=== PATIENT | female | born 1955 | race African-American/Black ===

== ENCOUNTER 2022-10-16 00:42 | Inpatient (IN) | payer MEDICARE, MEDICAID ==
[2022-10-16 04:08] LABS: Actual Bicarbonate (HCO3a) 19.9 mEq/L (22-28); Base Excess (BEa) -5.5 mEq/L (-2.0 to +3.0); CO2 Tension 38.7 mmHg (35.0-45.0); Calcium, Ionized (arterial) 1.15 mmol/L (1.12-1.30); Carboxyhemoglobin (COHb) 0.8 gm% (0.0-3.0); Hemoglobin (Hb) 14.1 g/dL (12.0-16.0); Potassium - ABG Lab 3.15 mmol/L (3.70-5.30); pH, Arterial 7.33 (7.35-7.45)
[2022-10-16 04:11] LABS: Puncture Site R RAD
[2022-10-16 04:12] LABS: ALV-art Gradient 77.825 mmHg (0-20)
[2022-10-16] MEDS ORDERED: Heparin 10,000 UNITS/ 10 ML VIAL SLOW IVP SCH (04:15)
[2022-10-16] MEDS ORDERED: HumaLOG 300 UNITS/3 ML VIAL SC PRN (04:19)
[2022-10-16] MEDS ORDERED: Dextrose 50% Abboject 50 ML SYRINGE SLOW IVP PRN (04:19)
[2022-10-16] MEDS ORDERED: Dextrose 5% in Water 1,000 ML IV PRN (04:19)
[2022-10-16] MEDS ORDERED: Electrolyte Replacement Protocol 1 EACH FS PRN (04:20)
[2022-10-16] MEDS ORDERED: Lactated Ringer's 1,000 ML IV SCH (04:30)
[2022-10-16] MEDS ORDERED: hydrALAZINE 20 MG/ML VIAL SLOW IVP PRN ×2 (04:34→09:07)
[2022-10-16 05:04] LABS: Hemoglobin 13.8 g/dL (12.0-16.0); Platelet Count 260 10x3/uL (130-400)
[2022-10-16 05:24] LABS: Lactic Acid 7.4 mmol/L (0.5-2.2)
[2022-10-16 05:31] LABS: Phosphorus 4.3 mg/dL (2.3-4.7)
[2022-10-16 05:32] LABS: Troponin I 8.326 ng/mL (< 0.028)
[2022-10-16 05:34] LABS: ALT (SGPT) 275 U/L (8-55); AST (SGOT) 334 U/L (5-34); Albumin 3.9 g/dL (3.4-4.8); Alkaline Phosphatase 110 U/L (40-110); Anion Gap 20 mmol/L (10-20); BUN (Urea Nitrogen) 18 mg/dL (9.8-20.1); Bilirubin, Total 0.7 mg/dL (0.2-1.2); Calc. Creatinine Clearance 35 mL/min (70-130); Calcium 8.8 mg/dL (7.8-10.44); Carbon Dioxide 15 mmol/L (23-31); Chloride 106 mmol/L (98-107); Estimated GFR 37; Globulin 3.6 g/dL (2.4-3.5); Glucose 343 mg/dL (80-115); Magnesium 2.1 mg/dL (1.6-2.6); Potassium 3.3 mmol/L (3.5-5.1); Protein, Total 7.5 g/dL (5.8-8.1); Sodium 138 mmol/L (136-145)
[2022-10-16] MEDS: Labetalol HCl 100 MG/20 ML VIAL SLOW IVP PRN ×6 (05:34→22:04)
[2022-10-16 05:39] LABS: D-Dimer Test Greater than 20.00 *mcg/mL (0.27-0.43)
[2022-10-16] MEDS: Heparin 25,000 units/D5W 500 ML IVPB SCH (07:17)
[2022-10-16] MEDS ORDERED: Potassium Chloride 20 MEQ TAB PO SCH (08:00)
[2022-10-16] MEDS: Amlodipine 5 MG TAB PO SCH (09:10)
[2022-10-16] MEDS: Pantoprazole 40 MG VIAL IVP SCH (09:10)
[2022-10-16] MEDS: Aspirin Chewable 81 MG TAB PER TUBE SCH (09:10)
[2022-10-16 10:50] LABS: Band 22 % (5-11); Hemoglobin 13.9 g/dL (12.0-16.0); Hypochromia SLIGHT = 6-15 cells (100X) (0-5/hpf); Lymphocytes 5 % (21-51); MDiff Complete? YES; Mean Corpuscular HGB CONC 30.8 g/dL (32.0-36.0); Mean Corpuscular Hemoglobin 28.8 pg (27.0-31.0); Mean Corpuscular Volume 93.4 fl (78.0-98.0); Mean Platelet Volume 7.6 fL (7.4-10.4); Monocytes 4 % (0-10); Neutrophil 65 % (42-75); Platelet Count 288 10x3/uL (130-400); Platelet Morphology Comment Appears Adequate; Polychromasia SLIGHT = 2-3 cells (100X) (0-2/hpf); RBC Distribution Width 13.1 % (11.5-14.5); Reactive Lymphocytes 4 % (0-10); Red Blood Cell (RBC) Count 4.82 mill/uL (4.20-5.40)
[2022-10-16 11:09] LABS: PTT Greater than 250.0 sec (22.9-36.1)
[2022-10-16] MEDS: Ketorolac Tromethamine 30 MG/ML VIAL IVP PRN ×2 (11:31→22:03)
[2022-10-16] MEDS: Atorvastatin Calcium 40 MG TAB PER TUBE SCH (20:13)
[2022-10-16 20:28] LABS: PTT 122.7 sec (22.9-36.1)
[2022-10-16] MEDS ORDERED: Fentanyl CADD 0 ML ONE (23:40)
[2022-10-17 04:37] LABS: #Basophils 0.1 thou/uL (0.0-0.2); #Eosinphils 0.1 thou/uL (0.0-0.7); #Lymphocytes 2.8 thou/uL (1.20-3.40); #Monocytes 1.5 thou/uL (0.11-0.59); #Neutrophils 8.9 thou/uL (1.40-6.50); %Basophils 0.8 % (0.0-1.0); %Eosinophils 0.4 % (0.0-10.0); %Monocytes 11.5 % (0.0-10.0); %Neutrophils 66.4 % (42.0-75.0); Hemoglobin 14.7 g/dL (12.0-16.0); Mean Corpuscular HGB CONC 32.3 g/dL (32.0-36.0); Mean Corpuscular Volume 93.1 fl (78.0-98.0); Mean Platelet Volume 8.3 fL (7.4-10.4); Platelet Count 215 10x3/uL (130-400); RBC Distribution Width 13.4 % (11.5-14.5); Red Blood Cell (RBC) Count 4.89 mill/uL (4.20-5.40); White Blood Cell (WBC) Count 13.4 10x3/uL (4.8-10.8)
[2022-10-17 05:02] LABS: ALT (SGPT) 159 U/L (8-55); AST (SGOT) 157 U/L (5-34); Albumin 3.3 g/dL (3.4-4.8); Alkaline Phosphatase 70 U/L (40-110); Anion Gap 18 mmol/L (10-20); BUN (Urea Nitrogen) 30 mg/dL (9.8-20.1); Bilirubin, Total 0.9 mg/dL (0.2-1.2); Calc. Creatinine Clearance 34 mL/min (70-130); Calcium 8.6 mg/dL (7.8-10.44); Carbon Dioxide 22 mmol/L (23-31); Cardiac Risk 2.5 (Less than 4.5); Chloride 108 mmol/L (98-107); Cholesterol 157 mg/dl (< 200 Desired); Estimated GFR 37; Globulin 3.3 g/dL (2.4-3.5); Glucose 132 mg/dL (80-115); HDL Cholesterol 62 mg/dL (>60 Neg Risk); LDL Cholesterol, Calculated 73 mg/dL; Magnesium 1.9 mg/dL (1.6-2.6); Potassium 3.6 mmol/L (3.5-5.1); Protein, Total 6.6 g/dL (5.8-8.1); Sodium 144 mmol/L (136-145); Triglycerides 112 mg/dL (Less than 150)
[2022-10-17 05:10] LABS: Lactic Acid 4.4 mmol/L (0.5-2.2)
[2022-10-17 07:18] LABS: Actual Bicarbonate (HCO3a) 25.3 mEq/L (22-28); Base Excess (BEa) 4.3 mEq/L (-2.0 to +3.0); Calcium, Ionized (arterial) 1.06 mmol/L (1.12-1.30); Carboxyhemoglobin (COHb) 0.6 gm% (0.0-3.0); Hemoglobin (Hb) 14.3 g/dL (12.0-16.0); O2 Tension (PaO2), arterial 71.4 mmHg (> 80.0); Potassium - ABG Lab 3.28 mmol/L (3.70-5.30); pH, Arterial 7.57 (7.35-7.45)
[2022-10-17 07:34] LABS: Puncture Site LRA
[2022-10-17] MEDS ORDERED: Magnesium 2 GM/50 ML(in water) 2 GM in Premix Bag 1 BAG IVPB SCH (08:00)
[2022-10-17] MEDS: Aspirin Chewable 81 MG TAB PER TUBE SCH (08:18)
[2022-10-17] MEDS: Pantoprazole 40 MG VIAL IVP SCH (08:18)
[2022-10-17] MEDS: Amlodipine 5 MG TAB PO SCH (08:18)
[2022-10-17] MEDS: Scopolamine 1.5 mg/72 hour Patch TD SCH (08:18)
[2022-10-17] MEDS ORDERED: Iopamidol-370 76% 500 ML 1 ML ONE (11:30)
[2022-10-17] MEDS: Heparin 25,000 units/D5W 500 ML IVPB SCH (16:37)
[2022-10-17] MEDS: Atorvastatin Calcium 40 MG TAB PER TUBE SCH (20:06)
[2022-10-17] MEDS: Ketorolac Tromethamine 30 MG/ML VIAL IVP PRN (22:17)
[2022-10-18] MEDS: HumaLOG 300 UNITS/3 ML VIAL SC PRN ×2 (05:00→20:45)
[2022-10-18 05:27] LABS: Hemoglobin 8.7 g/dL (12.0-16.0); Mean Corpuscular HGB CONC 31.8 g/dL (32.0-36.0); Mean Corpuscular Hemoglobin 29.5 pg (27.0-31.0); Mean Corpuscular Volume 92.8 fl (78.0-98.0); Mean Platelet Volume 8.9 fL (7.4-10.4); Platelet Count 286 10x3/uL (130-400); RBC Distribution Width 13.2 % (11.5-14.5); Red Blood Cell (RBC) Count 2.95 mill/uL (4.20-5.40); White Blood Cell (WBC) Count 22.3 10x3/uL (4.8-10.8)
[2022-10-18 05:31] LABS: Band 7 % (5-11); Lymphocytes 17 % (21-51); MDiff Complete? YES; Monocytes 6 % (0-10); Neutrophil 70 % (42-75); PTT Greater than 250.0 sec (22.9-36.1); Platelet Morphology Comment Appears Adequate; Polychromasia SLIGHT = 2-3 cells (100X) (0-2/hpf)
[2022-10-18 05:46] LABS: ALT (SGPT) 114 U/L (8-55); AST (SGOT) 155 U/L (5-34); Albumin 3.1 g/dL (3.4-4.8); Alkaline Phosphatase 76 U/L (40-110); Anion Gap 21 mmol/L (10-20); BUN (Urea Nitrogen) 50 mg/dL (9.8-20.1); Calc. Creatinine Clearance 18 mL/min (70-130); Calcium 8.2 mg/dL (7.8-10.44); Carbon Dioxide 26 mmol/L (23-31); Chloride 102 mmol/L (98-107); Estimated GFR 19; Globulin 3.6 g/dL (2.4-3.5); Glucose 231 mg/dL (80-115); Phosphorus 3.9 mg/dL (2.3-4.7); Potassium 3.6 mmol/L (3.5-5.1); Protein, Total 6.7 g/dL (5.8-8.1); Sodium 145 mmol/L (136-145)
[2022-10-18 07:45] LABS: Actual Bicarbonate (HCO3a) 25.9 mEq/L (22-28); CO2 Tension 30.4 mmHg (35.0-45.0); Carboxyhemoglobin (COHb) 0.6 gm% (0.0-3.0); Hemoglobin (Hb) 12.3 g/dL (12.0-16.0); O2 Tension (PaO2), arterial 125.6 mmHg (> 80.0); Potassium - ABG Lab 3.74 mmol/L (3.70-5.30); pH, Arterial 7.55 (7.35-7.45)
[2022-10-18 07:49] LABS: Puncture Site LRA
[2022-10-18] MEDS: Amlodipine 5 MG TAB PO SCH (08:58)
[2022-10-18] MEDS: Aspirin Chewable 81 MG TAB PER TUBE SCH (08:59)
[2022-10-18] MEDS: Pantoprazole 40 MG VIAL IVP SCH (08:59)
[2022-10-18 10:45] LABS: Hemoglobin 13.4 g/dL (12.0-16.0); Mean Corpuscular HGB CONC 30.6 g/dL (32.0-36.0); Mean Corpuscular Hemoglobin 28.5 pg (27.0-31.0); Mean Corpuscular Volume 93.2 fl (78.0-98.0); Mean Platelet Volume 9.2 fL (7.4-10.4); Platelet Count 254 10x3/uL (130-400); RBC Distribution Width 13.3 % (11.5-14.5); White Blood Cell (WBC) Count 20.9 10x3/uL (4.8-10.8)
[2022-10-18] MEDS ORDERED: Lactated Ringer's 500 ML IV SCH (11:30)
[2022-10-18] MEDS ORDERED: Lactated Ringer's 1,000 ML IV SCH (11:30)
[2022-10-18 12:52] LABS: Band 12 % (5-11); Lymphocytes 22 % (21-51); MDiff Complete? YES; Monocytes 12 % (0-10); Neutrophil 54 % (42-75); Platelet Morphology Comment Appears Adequate; Polychromasia SLIGHT = 2-3 cells (100X) (0-2/hpf)
[2022-10-18] MEDS: Lactated Ringer's 1,000 ML IV SCH ×2 (12:59→20:19)
[2022-10-18] MEDS: Atorvastatin Calcium 40 MG TAB PER TUBE SCH (20:17)
[2022-10-18] MEDS: Apixaban 5 MG TAB PO SCH (20:17)
[2022-10-19 05:04] VITALS: BMI 21.7
[2022-10-19] MEDS: Amlodipine 5 MG TAB PO SCH (09:30)
[2022-10-19] MEDS: Aspirin Chewable 81 MG TAB PER TUBE SCH (09:30)
[2022-10-19] MEDS: Lactated Ringer's 1,000 ML IV SCH (09:30)
[2022-10-19] MEDS: Apixaban 5 MG TAB PO SCH ×2 (09:31→19:53)
[2022-10-19] MEDS: Pantoprazole 40 MG VIAL IVP SCH (09:31)
[2022-10-19] MEDS: Atorvastatin Calcium 40 MG TAB PER TUBE SCH (19:53)
[2022-10-20 04:29] LABS: Hemoglobin 8.8 g/dL (12.0-16.0); Mean Corpuscular HGB CONC 30.5 g/dL (32.0-36.0); Mean Corpuscular Hemoglobin 28.8 pg (27.0-31.0); Mean Corpuscular Volume 94.4 fl (78.0-98.0); Mean Platelet Volume 9.8 fL (7.4-10.4); Platelet Count 164 10x3/uL (130-400); RBC Distribution Width 13.2 % (11.5-14.5); Red Blood Cell (RBC) Count 3.05 mill/uL (4.20-5.40); White Blood Cell (WBC) Count 10.7 10x3/uL (4.8-10.8)
[2022-10-20 04:49] LABS: Anion Gap 17 mmol/L (10-20); BUN (Urea Nitrogen) 73 mg/dL (9.8-20.1); Calc. Creatinine Clearance 20 mL/min (70-130); Calcium 8.2 mg/dL (7.8-10.44); Carbon Dioxide 28 mmol/L (23-31); Chloride 113 mmol/L (98-107); Estimated GFR 21; Glucose 169 mg/dL (80-115); Potassium 3.8 mmol/L (3.5-5.1)
[2022-10-20 05:12] LABS: Sodium 154 mmol/L (136-145)
[2022-10-20 05:17] LABS: Band 20 % (5-11); Lymphocytes 6 % (21-51); MDiff Complete? YES; Monocytes 6 % (0-10); Neutrophil 68 % (42-75)
[2022-10-20 07:15] LABS: Hemoglobin 8.7 g/dL (12.0-16.0); Mean Corpuscular HGB CONC 30.9 g/dL (32.0-36.0); Mean Corpuscular Hemoglobin 29.2 pg (27.0-31.0); Mean Corpuscular Volume 94.7 fl (78.0-98.0); Mean Platelet Volume 9.7 fL (7.4-10.4); Platelet Count 169 10x3/uL (130-400); RBC Distribution Width 13.3 % (11.5-14.5); Red Blood Cell (RBC) Count 2.96 mill/uL (4.20-5.40); White Blood Cell (WBC) Count 9.6 10x3/uL (4.8-10.8)
[2022-10-20 07:29] LABS: Anion Gap 16 mmol/L (10-20); BUN (Urea Nitrogen) 71 mg/dL (9.8-20.1); Calc. Creatinine Clearance 22 mL/min (70-130); Calcium 8.2 mg/dL (7.8-10.44); Carbon Dioxide 29 mmol/L (23-31); Chloride 113 mmol/L (98-107); Estimated GFR 22; Glucose 171 mg/dL (80-115); Potassium 3.8 mmol/L (3.5-5.1)
[2022-10-20 07:34] LABS: Actual Bicarbonate (HCO3a) 32.5 mEq/L (22-28); Base Excess (BEa) 7.9 mEq/L (-2.0 to +3.0); CO2 Tension 44.4 mmHg (35.0-45.0); Calcium, Ionized (arterial) 1.09 mmol/L (1.12-1.30); Carboxyhemoglobin (COHb) 0.9 gm% (0.0-3.0); Hemoglobin (Hb) 15.3 g/dL (12.0-16.0); O2 Tension (PaO2), arterial 70.9 mmHg (> 80.0); Potassium - ABG Lab 3.71 mmol/L (3.70-5.30); pH, Arterial 7.48 (7.35-7.45)
[2022-10-20] MEDS: Dextrose 5% in Water 1,000 ML IV SCH ×2 (07:39→13:35)
[2022-10-20] MEDS: Lactated Ringer's 1,000 ML IV SCH ×2 (07:42→18:15)
[2022-10-20 07:43] LABS: Puncture Site RRA
[2022-10-20 07:45] LABS: Sodium 154 mmol/L (136-145)
[2022-10-20] MEDS: Amlodipine 5 MG TAB PO SCH (07:52)
[2022-10-20] MEDS: Pantoprazole 40 MG VIAL IVP SCH (07:52)
[2022-10-20] MEDS: Aspirin Chewable 81 MG TAB PER TUBE SCH (07:53)
[2022-10-20] MEDS: Apixaban 5 MG TAB PO SCH ×2 (07:53→19:30)
[2022-10-20] MEDS: Scopolamine 1.5 mg/72 hour Patch TD SCH (07:53)
[2022-10-20 08:09] LABS: Band 19 % (5-11); Eosinophils 1 % (0-10); Hypochromia SLIGHT = 6-15 cells (100X) (0-5/hpf); Lymphocytes 9 % (21-51); MDiff Complete? YES; Metamyelocyte 1 % (0-0); Monocytes 1 % (0-10); Neutrophil 69 % (42-75); Platelet Morphology Comment Appears Adequate; Polychromasia SLIGHT = 2-3 cells (100X) (0-2/hpf)
[2022-10-20] MEDS ORDERED: Piperacillin/Tazobactam 3.375 GM in Sodium Chloride 0.9% 100 ML IVPB SCH (09:15)
[2022-10-20] MEDS ORDERED: NOREPINEPHRINE 8 MG/250 ML-D5W 250 ML IVPB SCH (13:00)
[2022-10-20] MEDS: Piperacillin/Tazobactam 3.375 GM in Sodium Chloride 0.9% 100 ML IVPB SCH (13:29)
[2022-10-20] MEDS ORDERED: Piperacillin/Tazobactam 2.25 GM in Sodium Chloride 0.9% 100 ML IVPB SCH (14:00)
[2022-10-20] MEDS ORDERED: Morphine 4 MG/ML VIAL SLOW IVP PRN (18:13)
[2022-10-20] MEDS: Atorvastatin Calcium 40 MG TAB PER TUBE SCH (19:30)
[2022-10-20] MEDS ORDERED: Acetaminophen 325 MG TAB PO PRN (20:05)
[2022-10-21] MEDS ORDERED: Vancomycin Dose by Levels Sliding Scale (Wt <71) FS SCH (00:15)
[2022-10-21] MEDS ORDERED: VANCOMYCIN 1.25 GM/250 ML BAG 1.25 GM in Premix Bag 1 BAG IVPB SCH (00:15)
[2022-10-21] MEDS: Piperacillin/Tazobactam 3.375 GM in Sodium Chloride 0.9% 100 ML IVPB SCH (03:53)
[2022-10-21] MEDS: HumaLOG 300 UNITS/3 ML VIAL SC PRN (04:00)
[2022-10-21 04:10] LABS: Band 42 % (5-11); Hemoglobin 7.1 g/dL (12.0-16.0); Lymphocytes 16 % (21-51); MDiff Complete? YES; Mean Corpuscular HGB CONC 29.6 g/dL (32.0-36.0); Mean Corpuscular Hemoglobin 28.9 pg (27.0-31.0); Mean Corpuscular Volume 97.8 fl (78.0-98.0); Mean Platelet Volume 10.2 fL (7.4-10.4); Metamyelocyte 8 % (0-0); Monocytes 3 % (0-10); Myelocyte 3 % (0-0); Neutrophil 28 % (42-75); Platelet Count 182 10x3/uL (130-400); RBC Distribution Width 13.4 % (11.5-14.5); RBC Morphology Normal; Red Blood Cell (RBC) Count 2.47 mill/uL (4.20-5.40); White Blood Cell (WBC) Count 13.3 10x3/uL (4.8-10.8)
[2022-10-21 04:14] LABS: Anion Gap 16 mmol/L (10-20); BUN (Urea Nitrogen) 94 mg/dL (9.8-20.1); Calc. Creatinine Clearance 12 mL/min (70-130); Carbon Dioxide 30 mmol/L (23-31); Chloride 109 mmol/L (98-107); Estimated GFR 11; Glucose 188 mg/dL (80-115); Potassium 4.8 mmol/L (3.5-5.1); Sodium 150 mmol/L (136-145)
[2022-10-21] MEDS: Lactated Ringer's 1,000 ML IV SCH ×2 (05:30→15:21)
[2022-10-21 06:59] LABS: Actual Bicarbonate (HCO3a) 28.3 mEq/L (22-28); Base Excess (BEa) 2.2 mEq/L (-2.0 to +3.0); CO2 Tension 53.1 mmHg (35.0-45.0); Calcium, Ionized (arterial) 1.04 mmol/L (1.12-1.30); Carboxyhemoglobin (COHb) 0.6 gm% (0.0-3.0); Hemoglobin (Hb) 7.7 g/dL (12.0-16.0); O2 Tension (PaO2), arterial 68.8 mmHg (> 80.0); Potassium - ABG Lab 4.92 mmol/L (3.70-5.30); pH, Arterial 7.34 (7.35-7.45)
[2022-10-21 07:10] LABS: ALV-art Gradient 399.575 mmHg (0-20); Puncture Site RRA
[2022-10-21] MEDS: Dextrose 5% in Water 1,000 ML IV SCH ×2 (08:22→09:02)
[2022-10-21] MEDS: Amlodipine 5 MG TAB PO SCH (08:37)
[2022-10-21] MEDS: Apixaban 5 MG TAB PO SCH ×2 (08:42→19:22)
[2022-10-21] MEDS: Pantoprazole 40 MG VIAL IVP SCH (08:42)
[2022-10-21] MEDS: Aspirin Chewable 81 MG TAB PER TUBE SCH (08:42)
[2022-10-21] MEDS ORDERED: Cefepime 1 GM in Sodium Chloride 0.9% 100 ML IVPB SCH (09:00)
[2022-10-21] MEDS: Atorvastatin Calcium 40 MG TAB PER TUBE SCH (19:23)
[2022-10-22] MEDS: Lactated Ringer's 1,000 ML IV SCH (00:59)
[2022-10-22 01:35] LABS: Vancomycin, Random 21.1 ug/mL (See Comment)
[2022-10-22 04:33] LABS: Hemoglobin 5.6 g/dL (12.0-16.0); Mean Corpuscular HGB CONC 29.4 g/dL (32.0-36.0); Mean Corpuscular Hemoglobin 28.5 pg (27.0-31.0); Mean Platelet Volume 10.7 fL (7.4-10.4); Platelet Count 170 10x3/uL (130-400); RBC Distribution Width 13.5 % (11.5-14.5); Red Blood Cell (RBC) Count 1.95 mill/uL (4.20-5.40); White Blood Cell (WBC) Count 16.5 10x3/uL (4.8-10.8)
[2022-10-22 04:43] LABS: Anion Gap 16 mmol/L (10-20); BUN (Urea Nitrogen) 119 mg/dL (9.8-20.1); Calc. Creatinine Clearance 10 mL/min (70-130); Calcium 7.7 mg/dL (7.8-10.44); Carbon Dioxide 26 mmol/L (23-31); Chloride 106 mmol/L (98-107); Estimated GFR 9; Glucose 140 mg/dL (80-115); Potassium 5.1 mmol/L (3.5-5.1); Sodium 143 mmol/L (136-145)
[2022-10-22 05:00] LABS: Band 30 % (5-11); Eosinophils 3 % (0-10); Lymphocytes 17 % (21-51); MDiff Complete? YES; Monocytes 1 % (0-10); Neutrophil 49 % (42-75)
[2022-10-22 05:35] LABS: Hemoglobin 5.5 g/dL (12.0-16.0); Platelet Count 158 10x3/uL (130-400)
[2022-10-22 05:40] LABS: INR-International Normal Ratio 4.4; PTT 49.1 sec (22.9-36.1); Prothrombin Time 43.9 sec (12.0-14.7)
[2022-10-22 06:52] LABS: Actual Bicarbonate (HCO3a) 25.7 mEq/L (22-28); Base Excess (BEa) 0.1 mEq/L (-2.0 to +3.0); Calcium, Ionized (arterial) 1.04 mmol/L (1.12-1.30); Carboxyhemoglobin (COHb) 0.7 gm% (0.0-3.0); O2 Tension (PaO2), arterial 77.3 mmHg (> 80.0); Potassium - ABG Lab 4.74 mmol/L (3.70-5.30); pH, Arterial 7.36 (7.35-7.45)
[2022-10-22 07:17] LABS: Hemoglobin (Hb) 5.8 g/dL (12.0-16.0); Puncture Site RRA
[2022-10-22] MEDS: Pantoprazole 40 MG VIAL IVP SCH (08:01)
[2022-10-22] MEDS: Amlodipine 5 MG TAB PO SCH (08:01)
[2022-10-22] MEDS: Aspirin Chewable 81 MG TAB PER TUBE SCH (08:02)
[2022-10-22] MEDS ORDERED: Cefepime 1 GM in Sodium Chloride 0.9% 100 ML IVPB SCH (09:00)
[2022-10-22] MEDS: Atorvastatin Calcium 40 MG TAB PER TUBE SCH (20:07)
[2022-10-23 06:55] LABS: Anion Gap 14 mmol/L (10-20); Calc. Creatinine Clearance 10 mL/min (70-130); Calcium 8.2 mg/dL (7.8-10.44); Carbon Dioxide 25 mmol/L (23-31); Chloride 108 mmol/L (98-107); Estimated GFR 8; Glucose 135 mg/dL (80-115); Potassium 4.8 mmol/L (3.5-5.1); Sodium 142 mmol/L (136-145); Vancomycin, Random 17.4 ug/mL (See Comment)
[2022-10-23 07:07] LABS: BUN (Urea Nitrogen) 126 mg/dL (9.8-20.1)
[2022-10-23 07:13] LABS: Hemoglobin 8.3 g/dL (12.0-16.0); Mean Corpuscular HGB CONC 30.4 g/dL (32.0-36.0); Mean Corpuscular Hemoglobin 29.1 pg (27.0-31.0); Mean Corpuscular Volume 95.7 fl (78.0-98.0); Mean Platelet Volume 10.5 fL (7.4-10.4); Platelet Count 199 10x3/uL (130-400); RBC Distribution Width 13.3 % (11.5-14.5); Red Blood Cell (RBC) Count 2.86 mill/uL (4.20-5.40); White Blood Cell (WBC) Count 19.2 10x3/uL (4.8-10.8)
[2022-10-23] MEDS ORDERED: Vancomycin HCl 250 MG in Sodium Chloride 0.9% 100 ML IVPB SCH (08:00)
[2022-10-23] MEDS: Scopolamine 1.5 mg/72 hour Patch TD SCH (08:24)
[2022-10-23 08:45] LABS: Band 26 % (5-11); Eosinophils 4 % (0-10); Lymphocytes 5 % (21-51); MDiff Complete? YES; Metamyelocyte 3 % (0-0); Monocytes 4 % (0-10); Neutrophil 58 % (42-75); Nucleated RBC 1 % (0); Platelet Morphology Comment Appears Adequate; Polychromasia SLIGHT = 2-3 cells (100X) (0-2/hpf)
[2022-10-23] MEDS ORDERED: Cefepime 0.5 GM, Admixture Fee 1 EACH in Sodium Chloride 0.9% 100 ML IVPB SCH (09:00)
[2022-10-23] MEDS: Amlodipine 5 MG TAB PO SCH (09:20)
[2022-10-23] MEDS: Pantoprazole 40 MG VIAL IVP SCH (09:20)
[2022-10-23 14:33] VITALS: BP 116/60
[2022-10-23] MEDS ORDERED: Lorazepam 2 MG/ML VIAL SLOW IVP PRN (16:35)
[2022-10-23 16:41] VITALS: TEMP 97
[2022-10-23] MEDS ORDERED: Morphine 4 MG/ML VIAL SLOW IVP SCH (16:45)
[2022-10-26] MEDS ORDERED: Apixaban 5 MG TAB PO SCH (09:00)
== END 2022-10-23 21:27 | disposition expired | DRG 207 ==
LOC: CCU 00:42
PROVIDERS: ADMIT Student in an Organized Health Care Education/Training Program; ATTEND Family Medicine
PROC: 5A1955Z Respiratory Ventilation, Greater than 96 Consecutive Hours (ICD-10-PCS; principal; 2022-10-16)
PROC: 0W9930Z Drainage of Right Pleural Cavity with Drainage Device, Percutaneous Approach (ICD-10-PCS; 2022-10-21)
PROC: 30233N1 Transfusion of Nonautologous Red Blood Cells into Peripheral Vein, Percutaneous Approach (ICD-10-PCS; 2022-10-22)
DX: I26.02 Saddle embolus of pulmonary artery with acute cor pulmonale (principal); J96.01 Acute respiratory failure with hypoxia; J96.02 Acute respiratory failure with hypercapnia; U07.1 COVID-19; K72.00 Acute and subacute hepatic failure without coma; I21.A1 Myocardial infarction type 2; J93.0 Spontaneous tension pneumothorax; R40.20 Unspecified coma; G93.1 Anoxic brain damage, not elsewhere classified; N17.9 Acute kidney failure, unspecified; E87.0 Hyperosmolality and hypernatremia; D62 Acute posthemorrhagic anemia; Z66 Do not resuscitate; Z51.5 Encounter for palliative care; I46.8 Cardiac arrest due to other underlying condition; F20.9 Schizophrenia, unspecified; Z91.14 Patient's other noncompliance with medication regimen; F17.210 Nicotine dependence, cigarettes, uncomplicated; K76.9 Liver disease, unspecified; E87.6 Hypokalemia; R73.9 Hyperglycemia, unspecified
CPT/HCPCS: 36415; 36416; 36430; 36600; 70551; 71045; 71275; 78610; 80048; 80053; 80061; 80202; 82533; 82805; 83605; 83735; 84100; 84443; 84484; 85014; 85018; 85025; 85049; 85379; 85610; 85730; 86850; 86900; 86901; 87040; 87077; 87149; 87186; 93306; 93970; 94003; 95816; 95819; 95957; A9521; C9113; J0692; J1644; J1815; J1885; J2060; J2543; J3370; J3475; J3490; J7120; P9016; Q9967